=== PATIENT | female | born 1980 | race Hispanic/Latino ===

== ENCOUNTER 2019-05-31 18:33 | Inpatient (IN) ==
--- NOTE | 2019-05-31 18:55 | PROVIDER DOCUMENTATION ---
HPI-General Adult - General Chief Complaint: Abdominal Pain Stated Complaint: COUGH, HEADACHE Time Seen by Provider: 05/31/19 18:43 Source: patient Allergies/Adverse Reactions: Patient Allergies Allergy/AdvReac Type Severity Reaction Status Date / Time No Known Allergies Allergy Verified 05/31/19 18:44 - History of Present Illness -Gen Adult Nature of Presenting Problems: Pt. is 38 yof that presents with c/o RLQ pain and cough for 10 days. Pt. was se en at an and given cough medications and antibiotics. Pt. reports she isn't any better. Location of Pain/Injury: reports: abdomen. denies: none, head, face, mouth, neck, chest, upper extremity, hand(s), back, pelvis, genitalia, lower extremity, feet, upper body, lower body, generalized, other Pain Radiation: reports: RLQ. denies: no radiation, arm(s), back, buttocks, chest, epigastric, feet, groin, jaw, flank (L), legs (lower), LLQ, LUQ, neck, periumbilical, flank (R), RUQ, shoulder(s), scapula, scrotal, sternal notch, suprapubic, legs (upper), urethral, vaginal, other Quality of Pain: reports: aching. denies: burning, pressure, tightness Severity: reports: moderate. denies: mild, severe Onset/Duration: reports: gradual, other (Two weeks) Timing: reports: still present. denies: improving, gone now, getting worse Context/Activities at Onset: reports: none. denies: light activity, moderate activity, vigorous activity, recent emotional stress, recent physical stress, recent trauma history, possible bad food, cold exposure, eating, out of country travel, rest, sleep, sexual activity, other Modifying Factors: improves with: nothing Associated Symptoms: reports: cough, genitourinary problems, nausea. denies: denies symptoms, anxiety, arm pain, back/neck pain, chest pain, constipation, diaphoresis, diarrhea, dizziness, EENT symptoms, fatigue, fever/chills, headaches, heartburn, joint pain, loss of appetite, malaise, muscle aches, sinus congestion/drainage, rash, seizure, shortness of breath, sensory/motor loss, pain with inspiration, swelling/mass in abdomen, syncope, vomiting, weakness, trouble walking, other Similar Symptoms Previously?: Yes Recently seen or treated by another doctor?: Yes Review of Systems - Adult - REVIEW OF SYSTEMS - ADULT Constitutional: reports: no symptoms reported Eyes: reports: no symptoms reported Ears, Nose, Mouth & Throat: reports: no symptoms reported Cardiovascular: reports: no symptoms reported Respiratory: reports: see HPI, cough. denies: pleurisy, wheezing Gastrointestinal: reports: see HPI, abdominal pain, nausea. denies: hematemesis, diarrhea, vomiting Genitourinary: reports: see HPI, dysuria, flank pain. denies: frequency, hematuria, urgency Musculoskeletal: reports: no symptoms reported Integumentary: reports: no symptoms reported Neurological: reports: no symptoms reported Psychiatric: reports: no symptoms reported Past History - Adult - PAST MEDICAL HISTORY-ADULT Review of Records: reports: Old Records Reviewed, Nursing Assessment Review, Medications Reviewed, Social history reviewed & non-contributory. - IMMUNIZATION STATUS Childhood Immunizations: See Nurse Assessment Flu Vaccine: See Nurse Assessment - FAMILY HISTORY Family History: reviewed, not pertinent - SOCIAL HISTORY Smoking: denies Physical Exam-General - PHYSICAL EXAM-ADULT Initial Vital Signs Reviewed: Yes - CONSTITUTIONAL General Appearance: alert, mild distress, obese. negative: anxious, obtunded, combative - EYES Eyes: PERRL/EOMI, pink conjunctivae - HEAD, EARS, NOSE, MOUTH & THROAT HENMT: normocephalic/atraumatic, moist mucous membranes. negative: pharynx normal, frontal tenderness, maxillary tenderness - NECK Neck: non-tender, full range of motion, supple, normal inspection. negative: tender lateral, tender midline - RESPIRATORY Respiratory: lungs clear, normal breath sounds. negative: crackles, rales, rhonchi - CARDIOVASCULAR Cardiovascular: normal peripheral pulses, regular rate, rhythm, no edema - GASTROINTESTINAL (ABDOMEN) Abdominal Exam: normal bowel sounds, non tender, soft, tenderness (RLQ). neg ative: rigid, rebound, hernia, mass - LYMPHATIC Lymphatic: no adenopathy. negative: axilla node tender, cervical node tenderness - MUSCULOSKELETAL Back Exam: normal inspection, no CVA tenderness, no vertebral tenderness Extremity: normal range of motion, non-tender, normal gait, normal inspection Peripheral Pulses: radial (R): 2+, radial (L): 2+ - SKIN Integumentary: normal color, normal turgor, warm/dry - NEUROLOGIC Neurologic: grossly normal, no motor/sensory deficits - PSYCHIATRIC Psych/Mental Status: normal mood/affect, normal thought content, normal thought process, oriented x 3. negative: anxious, paranoid, tearful Progress - PLAN OF CARE/RESULTS Progress/Plan/Lab Results: Vital Signs - 8 hr 05/31/19 18:40 Temperature 99.0 F Pulse Rate 95 H Respiratory Rate 20 Blood Pressure 118/69 O2 Sat by Pulse Oximetry 96 Bedside Urine ED: Urine Bedside Start: 05/31/19 18:46 Freq: ORDERED Status: Active Protocol: Activity Type Activity Date Activity User E-Sign Co-Sign Detail Recorded Client Recorded Date Recorded By Document 05/31/19 18:49 [id number] 05/31/19 18:49 [id number] 05/31/19 18:49 Point of Care [Bedside Point of Care] -Lot # [id number] - Results Negative -Control Line Visible? Yes Orders Category Date Time Status ED: Urine Bedside ORDERED Care 05/31/19 18:[address] W/POSS RFLX CULT [URINALYSIS] Stat Lab 05/31/19 18:49 Ordered Laboratory Tests 05/31/19 18:44 Urine Source CLEAN CATCH Urine Color YELLOW Urine Clarity VERY CLOUDY A Urine pH 7.0 Ur Specific Gardner 1.005 Urine Protein 1+(30 mg/dL) A Urine Ketones NEGATIVE Urine Blood 3+ A Urine Nitrite NEGATIVE Urine Bilirubin NEGATIVE Urine Urobilinogen NORMAL Urine Microscopic RBC 10-20 A Urine WBC 2+ A Urine Microscopic WBC TNTC A Ur Epithelial Cells >10 A Urine Crystals NONE SEEN Urine Bacteria 4+ Urine Casts NONE SEEN Urine Yeast NONE SEEN Urine Glucose NEGATIVE Discussed results and plan of care with patient. Patient agrees with plan and verbalizes understanding. Patient's WBC count [address] concerning for obstructive stone/Pyelonephritis. Urology consulted and will follow. Hospitalist paged for admission ([id number]). Patient will be admitted for IV abx. Patient agrees with plan to admit. Result Diagrams: 05/31/19 21:52 05/31/19 21:52 - CT/MRI 1 CT Study: Renal Stone ([facility] - [address] , [address] [place] [id number] [address] Department of Imaging Patient: NAHUM BLUNTADM Date: 05/31/19#: [id number] : 1980ADM Status: [facility] ERAcct#: [id number] Age/Sex: 38/FRoom/Bed: Loc: P.ED Ordering Physician: Lucho Lozano Family Physician: None,PCP Reason for Procedure: right flank pain Signed EXAM: CT RENAL STONE SEARCH INDICATION: right flank pain TECHNIQUE: This exam was performed using automated exposure control, adjustment of mA or kV according to patient size, and/or use of iterative reconstruction technique. COMPARISON: None. FINDINGS: There is mild to moderate hepatic steatosis. The gallbladder, spleen, pancreas, and adrenal glands are unremarkable. There is a large staghorn calculus in the right renal collecting system extending into the renal pelvis. There is mild to moderate calyceal dilation on the right and there is perinephric stranding indicating obstruction and/or pyelonephritis. The left kidney appears normal. The urinary bladder is unremarkable. The reproductive tract is grossly unremarkable as imaged. The appendix is normal. There is no evidence of bowel wall thickening or bowel obstruction. The remainder of the GI tract is grossly unremarkable. IMPRESSION: Large right renal staghorn calculus with dilated calyces and perinephric stranding indicating obstruction and/or pyelonephritis. Electronically signed by Rudy Mensah 05/31/2019 8:59 PM 05/31/192058 Interpreting Physician: Rudy Mensah MD Dictated Date/Time: 05/31/192052 cc: Lucho Lozano; None,PCP) CT Results: See note - CONSULTS/PCP/HOSPITALIST Notification #1 *Consult/PCP/Hospitalist*: Dr. Whitlock Time Discussed: 21:17 Reason/Comments: Consult Consult Disposition: F/U in office (ABX and treat stone pain.) #2 Consult: Ramila Del Rio Time Discussed: 22:20 Reason/Comments: Staghorn calculus; Pyelonephritis/Obstruction; Leukocytosis Consult Disposition: Admit - CHANGE OF SHIFT REPORT (ED Provider) 1 Report Given and Care Transferred to:: SOPHY Campa Time of Transfer: 21:19 Items Pending: Labs Departure - Departure Date of Disposition Decision: 05/31/19 Time of Disposition Decision: 22:20 DIAGNOSIS: Staghorn calculus, Pyelonephritis, Nausea Leukocytosis, unspecified Qualifiers: Leukocytosis type: unspecified Qualified Code(s): D72.829 - Elevated white bloo d cell count, unspecified Disposition: ADMITTED INPATIENT 09 Certified Medical Emergency: Emergent Condition: Stable Referrals and Follow-Ups: None,PCP [Primary Care Provider] - Douglas Whitlock MD [ACTIVE STAFF PHYSICIAN] - - Critical Care Note This patient required my direct & personal management of CC.: No Attestation - Physician/ KARLA Attestation Patient care was provided by Advanced Practice Provider:: Yes Advanced Practice Provider:: Lucho Lozano Advanced Practice Provider documentation review:: The Mid-level provider documentation, treatment plan and medical decision making was reviewed by the physician who agrees with all treatment and medical decision making by the MLP. The physician spent face to face time with patient:: No Advanced Practice Provider documentation review:: Supervising physician onsite and consulted in the evaluation and care of this patient. The physician did not have a face to face encounter with the patient.
[2019-05-31 19:13] LABS: BILIRUBIN URINE NEGATIVE (NEGATIVE); BLOOD URINE 3+ (NEGATIVE); CLARITY VERY CLOUDY (CLEAR); COLOR YELLOW; GLUCOSE URINE NEGATIVE (NEGATIVE); KETONE URINE NEGATIVE (NEGATIVE); LEUKOCYTES URINE 2+ (NEGATIVE); NITRITE URINE NEGATIVE (NEGATIVE); PROTEIN URINE 1+(30 mg/dL) mg/dL (NEGATIVE); SP GRAVITY URINE 1.005; UROBILINOGEN URINE NORMAL
[2019-05-31 19:16] LABS: URINE SOURCE CLEAN CATCH
[2019-05-31 19:17] LABS: URINE BACTERIA 4+ /HFP; URINE CAST NONE SEEN /LPF; URINE CRYSTAL NONE SEEN /HPF; URINE EPITHELIAL CELLS >10 /HPF (<10); URINE WBC TNTC /HPF (<10); URINE YEAST NONE SEEN /HPF
--- NOTE | 2019-05-31 21:01 | Diag Imaging Result Doc PS360 ---
EXAM: CT RENAL STONE SEARCH INDICATION: right flank pain TECHNIQUE: This exam was performed using automated exposure control, adjustment of mA or kV according to patient size, and/or use of iterative reconstruction technique. COMPARISON: None. FINDINGS: There is mild to moderate hepatic steatosis. The gallbladder, spleen, pancreas, and adrenal glands are unremarkable. There is a large staghorn calculus in the right renal collecting system extending into the renal pelvis. There is mild to moderate calyceal dilation on the right and there is perinephric stranding indicating obstruction and/or pyelonephritis. The left kidney appears normal. The urinary bladder is unremarkable. The reproductive tract is grossly unremarkable as imaged. The appendix is normal. There is no evidence of bowel wall thickening or bowel obstruction. The remainder of the GI tract is grossly unremarkable. IMPRESSION: Large right renal staghorn calculus with dilated calyces and perinephric stranding indicating obstruction and/or pyelonephritis. Electronically signed by Rudy Mensah 05/31/2019 8:59 PM
[2019-05-31] MEDS ORDERED: ROCEPHIN 1 GM in NS 50 ML IV ONE (21:18)
[2019-05-31] MEDS ORDERED: NS 1,000 ML IV ONE (21:18)
[2019-05-31] MEDS ORDERED: TORADOL IV ONE (21:18)
[2019-05-31] MEDS ORDERED: ZOFRAN IV ONE (21:18)
[2019-05-31 22:12] LABS: BASO# 0.04 X1000 (0.0-0.2); BASO% 0.3 % (0.0-0.8); EOS# 0.42 X1000 (0.0-0.7); EOS% 2.9 % (0.0-10.0); HEMATOCRIT 36.6 % (37.0-47.0); HEMOGLOBIN 11.5 g/dL (12.0-16.0); IMM GRAN# 0.04 X1000 (0.0-0.04); IMM GRAN% 0.3 % (0.0-0.5); LYMPH# 3.51 X1000 (1.2-3.4); LYMPH% 24.5 % (20.5-51.1); MCH 22.6 PG (27-31); MCHC 31.4 g/dL (33-37); MONO# 1.35 X1000 (0.11-0.59); MONO% 9.4 % (1.7-9.3); MPV 10.5 FL (7.4-10.4); NEUT# 8.95 X1000 (1.4-6.5); NEUT% 62.6 % (42.2-75.2); PLT 363 X1000 (130-400); RBC 5.08 XMIL (4.2-5.4); RDW 18.4 % (11.5-14.5); WBC 14.31 X1000 (4.8-10.8)
[2019-05-31 22:25] LABS: AGAP 12; ALBUMIN 4.2 g/dL (3.5-5.0); ALKALINE PHOSPHATASE 99 U/L (32-104); BUN 8 mg/dL (8-22); CHLORIDE 100 mmol/L (98-107); COSMO 273; CREATININE 0.5 mg/dL (0.5-0.9); ESTIMATED GFR > 60; GLUCOSE 81 mg/dL (70-104); GOT 18 U/L (10-30); GPT 17 U/L (10-36); POTASSIUM 3.6 mmol/L (3.5-5.1); SODIUM 138 mmol/L (136-145); TCO2 26 mmol/L (25-35); TOTAL PROTEIN 7.6 g/dL (6.3-8.3)
[2019-06-01] MEDS ORDERED: ZOFRAN IV PRN (02:28)
[2019-06-01] MEDS ORDERED: TORADOL IV PRN (02:28)
[2019-06-01] MEDS ORDERED: NS 1,000 ML IV ONE (02:28)
[2019-06-01] MEDS ORDERED: MORPHINE IV PRN ×2 (04:04→16:44)
[2019-06-01] MEDS ORDERED: ROCEPHIN 1 GM in NS 50 ML IV SCH ×2 (04:15→22:00)
--- NOTE | 2019-06-01 06:14 | HISTORY AND PHYSICAL ---
PRIMARY CARE PHYSICIAN: Unknown. CHIEF COMPLAINT: Right flank pain and not feeling well. HISTORY OF PRESENTING ILLNESS: A 38-year-old female without significant past medical history had presented initially to [facility] with right flank pain. She was stating that she was nauseated and was having fevers. The patient was evaluated there. She had imaging done which did show a large right renal staghorn calculus, and also shows possible pyelonephritis. She was treated with IV antibiotics. Her case was discussed with urologist who recommended the patient be transferred to [facility] for further evaluation and management. At the time of my examination, patient denied any headache, chest pain, shortness of breath, hemoptysis, melena or weight changes but complained of right flank pain. PAST MEDICAL HISTORY: None. PAST SURGICAL HISTORY: None. ALLERGIES: No known drug allergies. CURRENT MEDICATIONS: None. SOCIAL HISTORY: No history of smoking, alcohol or illicit drug use. FAMILY HISTORY: No history of coronary disease. REVIEW OF SYSTEMS: Fourteen point review of systems as in HPI. Other systems negative. PHYSICAL EXAMINATION: GENERAL: Cooperative friendly female. She is resting more comfortably now. VITAL SIGNS: Temperature 97.6 degrees, pulse 77, respirations 22, and blood pressure 110/60. HEENT: Atraumatic, normocephalic. Extraocular movements intact. PERRLA. NECK: Supple. CHEST: Clear to auscultation. CARDIOVASCULAR: Regular rate and rhythm. ABDOMEN: Soft. Positive bowel sounds. BACK: There is right flank tenderness. NEUROLOGIC: She is awake, alert, and oriented x3. : No bladder distention. SKIN: Warm. LABORATORIES AND STUDIES: WBCs 14.31, hemoglobin 11.5, hematocrit 36.6, and platelets 363,000. Sodium 138, potassium 3.6, chloride 100, CO2 is 26, BUN is 8, creatinine is 0.5, and glucose is 81. Renal CT shows a large right renal staghorn calculus and perinephric stranding indicating possible pyelonephritis. ASSESSMENT: This is a 38-year-old female without any significant past medical history who presented to emergency department with several days history of having right flank pain. She was evaluated initially at [facility]. Due to lack of subspecialist care, she was transferred to [facility] for further evaluation and management. 1. Large right renal staghorn calculus. 2. Acute pyelonephritis. PLAN: 1. We will admit patient to medical floor with telemetry. 2. We will continue with supportive care with IV fluids, antiemetics, and pain control. 3. We will start patient on empiric antibiotics. 4. We will consult Urology. 5. We will put patient on DVT prophylaxis with SCD's. 6. We will continue to follow and reassess and make further recommendations based on the patient's clinical course. cc: Kadeem Ramos MD
[2019-06-01 06:37] LABS: AGAP 12; BUN 11 mg/dL (8-22); CALCIUM 8.7 mg/dL (8.8-10.2); CHLORIDE 107 mmol/L (98-107); COSMO 285; CREATININE 0.6 mg/dL (0.5-0.9); ESTIMATED GFR > 60; GLUCOSE 111 mg/dL (70-104); POTASSIUM 3.7 mmol/L (3.5-5.1); SODIUM 143 mmol/L (136-145); TCO2 24 mmol/L (25-35)
[2019-06-01 06:42] LABS: BASO# 0.04 X1000 (0.0-0.2); BASO% 0.4 % (0.0-0.8); HEMATOCRIT 32.2 % (37.0-47.0); HEMOGLOBIN 10.1 g/dL (12.0-16.0); LYMPH# 2.91 X1000 (1.2-3.4); LYMPH% 29.3 % (20.5-51.1); MCH 23.2 PG (27-31); MCHC 31.4 g/dL (33-37); MCV 73.9 FL (81-99); MONO# 1.19 X1000 (0.11-0.59); MPV 10.8 FL (7.4-10.4); NEUT# 5.28 X1000 (1.4-6.5); NEUT% 53.3 % (42.2-75.2); PLT 307 X1000 (130-400); RBC 4.36 XMIL (4.2-5.4); RDW 18.3 % (11.5-14.5); WBC 9.92 X1000 (4.8-10.8)
--- NOTE | 2019-06-01 11:20 | CONSULTATION ---
DATE OF CONSULTATION: 06/01/2019 CHIEF COMPLAINT: Right flank pain. HISTORY OF PRESENT ILLNESS: Ms. White is a 38-year-old female with no pertinent past medical history who presented to [facility] last night complaining of right flank pain. She said that she had been having pain off and on for several weeks now. She states that she may have had a low-grade temperature at home. She denies any nausea or vomiting, hematuria, or dysuria. The patient had a CT of the abdomen and pelvis performed which showed a large right staghorn renal calculus. The patient's urinalysis showed some blood as well as bacteria present. The patient was sent and admitted to [facility] for treatment of possible kidney infection and pyelonephritis. The patient today denies any pain and remains afebrile with stable vital signs. She denies a personal or family history of stones. She denies ever seeing a urologist previously. PAST MEDICAL HISTORY: None. PAST SURGICAL HISTORY: None. ALLERGIES: No known drug allergies. MEDICATIONS: No home medications. FAMILY HISTORY: She denies a family history of malignancy or nephrolithiasis. SOCIAL HISTORY: She denies tobacco, alcohol, or illicit drug use. REVIEW OF SYSTEMS: A 12 point review of systems was performed with all pertinent positives in the HPI. PHYSICAL EXAMINATION: Vital Signs: Temperature 98.5, heart rate 70, blood pressure 115/68, and oxygen saturation 98% on room. General: No acute distress. Resting comfortably in bed. Alert and oriented times 3. HEENT: Normocephalic, atraumatic. Pupils are equal, round, and reactive to light. Mucous membranes are moist. Neck: Trachea is midline with no obvious masses. Chest: Good respiratory effort without wheezing or rales. Cardiovascular: Regular rate and rhythm. No evidence of lower extremity edema. Abdomen: Soft, nontender, and nondistended. No palpable masses or hepatosplenomegaly. : No suprapubic tenderness. No CVA tenderness. No bladder distention. Neurologic: Gross motor and sensory intact. Alert and oriented x 3. Skin: No obvious skin lesions or rashes. Musculoskeletal: Moving all extremities. LABORATORY DATA: White blood cell count is 9.9, hemoglobin 10.1, hematocrit 32.2, and platelets 307. Sodium is 145, potassium 3.5, chloride 107, bicarb 24, creatinine 0.6, BUN 11, glucose 111, and calcium 8.7. Urinalysis showed 3+ blood with greater than 10 epithelial cells and 4+ bacteria. IMAGING: CT of the abdomen and pelvis, noncontrast: Images were reviewed which showed a large staghorn renal calculus prominent in the lower and interpolar of the right kidney. Slight fullness of the upper pole of the kidney. The stone appears to enter into the right proximal ureter at the ureteropelvic junction. No other stones are seen. ASSESSMENT AND PLAN: Ms. White is a 38-year-old female who presented to the Emergency Room overnight with the complaint of right flank pain. The patient had a CT scan which showed a large staghorn right renal calculus. The patient had a slightly elevated white blood cell count on admission of 14 which has returned down to 9 today. Creatinine remains stable. The patient remains afebrile. I discussed with the patient this morning that she has a large stone within her kidney and likely would need a percutaneous nephrostolithotomy for treatment of the stone. I discussed this procedure at length with the patient and we planned to do this in the outpatient setting with follow up urine culture and treatment with culture specific antibiotics in preparation for surgery. From a urologic standpoint no immediate intervention is necessary. We will continue to monitor. Please call with questions or concerns. cc: Douglas Whitlock MD MTDD
[2019-06-01] MEDS: NS 1,000 ML IV SCH (14:51)
[2019-06-01] MEDS ORDERED: NORCO-7.5 PO PRN (16:43)
--- NOTE | 2019-06-01 17:14 | PROGRESS NOTE ---
DATE: 06/01/2019 SUBJECTIVE: Patient is complaining a bit of abdominal pain, especially after she ate. She seems to be doing okay though. Will continue to follow. OBJECTIVE: Blood pressure is 123/63, heart rate 82, respiratory 16, temperature 98.5 degrees, 95% on room air.Cardiovascular: Regular rate and rhythm. Pulmonary: Bilateral breath sounds clear to auscultation. GI: Soft, nontender, nondistended. Bowel sounds are positive. LABORATORY DATA: WBC is 9.9, hemoglobin and hematocrit 10, 32, MCV 73, platelets of 307,000. Creatinine intact. UA does look like she has gross pyuria. PROBLEM LIST: 1. Staghorn with pyelonephritis. We will continue empiric antibiotics. White count has already improved. Cultures are thus far no growth. 2. We will continue fluids and continue to monitor very closely. Wait for culture results. Urology has been consulted but they are not planning to do anything inpatient. We will continue nephrolithotomy as an outpatient. Continue to follow closely. cc: Surinder Trinh MD MTDD
[2019-06-02] MEDS: NS 1,000 ML IV SCH ×2 (01:47→10:05)
[2019-06-02 05:53] LABS: BASO# 0.03 X1000 (0.0-0.2); BASO% 0.3 % (0.0-0.8); EOS% 7.7 % (0.0-10.0); HEMATOCRIT 31.8 % (37.0-47.0); HEMOGLOBIN 10.1 g/dL (12.0-16.0); LYMPH# 2.95 X1000 (1.2-3.4); LYMPH% 32.3 % (20.5-51.1); MCH 23.1 PG (27-31); MCHC 31.8 g/dL (33-37); MCV 72.6 FL (81-99); MONO% 8.8 % (1.7-9.3); MPV 10.8 FL (7.4-10.4); NEUT# 4.65 X1000 (1.4-6.5); NEUT% 50.9 % (42.2-75.2); PLT 327 X1000 (130-400); RBC 4.38 XMIL (4.2-5.4); RDW 18.4 % (11.5-14.5); WBC 9.13 X1000 (4.8-10.8)
[2019-06-02] MEDS ORDERED: HALL'S COUGH LOZENGE MT PRN (09:53)
[2019-06-02 11:44] VITALS: BP 100/52
--- NOTE | 2019-06-02 16:15 | DISCHARGE SUMMARY ---
ADMISSION DATE: 06/01/2019 DISCHARGE DATE: 06/02/2019 DISCHARGE DIAGNOSIS: Pyelonephritis of the left kidney. Large right renal staghorn calculus with dilated calices. Culture negative. This is a 38-year-old female. She was admitted 06/01 (discharge date will be 06/02) for abdominal pain. She had a large right renal staghorn with acute pyelonephritis. Urology was consulted and recommended an outpatient nephrostolithotomy, this would be done after her urine culture was obtained, and there was no immediate urological surgical need at this time. Her culture did not grow out anything, but she defervesced on Rocephin, and she was felt stable for discharge. Her diet was advanced. Her white count came down to 9. I think she had no fevers, but she did not have them during her course. She was discharged on Levaquin 500 daily for 14 days and given a prescription for Ultram p.r.n. She will need followup with Dr. Whitlock within 1 to 2 weeks, PCP within 1 to 2 weeks. Return for worsening abdominal pain, nausea, fever. cc: Surinder Trinh MD
== END 2019-06-02 13:44 | disposition home or self-care (01) | DRG 694 ==
LOC: P.ED 18:33 → 4N 06-01 01:54 → SUATTDRO 06-01 01:54 → 4N 06-01 02:28
PROVIDERS: ATTEND Internal Medicine

== ENCOUNTER 2019-06-17 10:10 | Day surgery (SDC) ==
[2019-06-11 10:49] LABS: HEMATOCRIT 36.1 % (37.0-47.0); HEMOGLOBIN 11.7 g/dL (12.0-16.0); MCH 23.3 PG (27-31); MCHC 32.4 g/dL (33-37); MCV 71.9 FL (81-99); MPV 9.9 FL (7.4-10.4); RBC 5.02 XMIL (4.2-5.4); RDW 18.5 % (11.5-14.5); WBC 8.4 X1000 (4.8-10.8)
[2019-06-11 11:32] LABS: AGAP 10; BUN 13 mg/dL (8-22); CALCIUM 9.4 mg/dL (8.8-10.2); CHLORIDE 104 mmol/L (98-107); COSMO 280; CREATININE 0.5 mg/dL (0.5-0.9); ESTIMATED GFR > 60; GLUCOSE 114 mg/dL (70-104); SODIUM 140 mmol/L (136-145); TCO2 26 mmol/L (25-35)
[2019-06-17] MEDS ORDERED: LR 1,000 ML ONE ×2 (10:52→18:08)
[2019-06-17] MEDS ORDERED: KEFZOL 1 GM/D5W 2 GM/100 ML IVPB ONE (10:53)
[2019-06-17] MEDS ORDERED: PEPCID ONE (10:53)
[2019-06-17] MEDS ORDERED: REGLAN ONE (10:53)
[2019-06-17] MEDS ORDERED: DIPRIVAN 1% ONE (12:22)
[2019-06-17] MEDS ORDERED: QUELICIN (DOSE) ONE (12:23)
[2019-06-17] MEDS ORDERED: XYLOCAINE-MPF 2% ONE (12:23)
[2019-06-17] MEDS ORDERED: DUONEB (A & A) INH ONE (12:58)
[2019-06-17] MEDS ORDERED: SUFENTA ONE (13:19)
[2019-06-17] MEDS ORDERED: VENTOLIN HFA ONE (17:02)
[2019-06-17] MEDS ORDERED: ROBINUL ONE (17:02)
[2019-06-17] MEDS ORDERED: DECADRON ONE (17:19)
[2019-06-17] MEDS ORDERED: ZOFRAN ONE (17:19)
[2019-06-17] MEDS: DILAUDID ONE ×2 (18:07→18:17)
[2019-06-17] MEDS ORDERED: TORADOL ONE (18:07)
[2019-06-17] MEDS ORDERED: ZOFRAN IV PRN (18:15)
[2019-06-17] MEDS ORDERED: TYLENOL PO PRN (18:15)
[2019-06-17] MEDS ORDERED: NORCO-7.5 PO PRN (18:15)
[2019-06-17] MEDS ORDERED: LABETALOL IV PRN (18:15)
--- NOTE | 2019-06-17 18:42 | Diag Imaging Result Doc PS360 ---
EXAM: CHEST-PORTABLE - 06/17/2019 HISTORY: post op nephrolithotomy TECHNIQUE: Portable chest COMPARISON: None. FINDINGS: The projection is somewhat lordotic which limits detail at the lung bases. Lungs appear grossly clear. There is no pleural effusion or pneumothorax identified. Heart size appears normal. IMPRESSION: No evidence of acute disease. Electronically signed by Frederick Owen 06/17/2019 6:40 PM
[2019-06-17] MEDS ORDERED: LR 1,000 ML IV SCH (19:00)
[2019-06-17] MEDS ORDERED: NORCO-7.5 ONE (19:25)
[2019-06-17 20:52] LABS: HEMATOCRIT 33.4 % (37.0-47.0); HEMOGLOBIN 10.6 g/dL (12.0-16.0); MCH 23.2 PG (27-31); MCHC 31.7 g/dL (33-37); MCV 73.2 FL (81-99); MPV 10.1 FL (7.4-10.4); RBC 4.56 XMIL (4.2-5.4); RDW 18.4 % (11.5-14.5); WBC 18.99 X1000 (4.8-10.8)
[2019-06-17 21:12] LABS: AGAP 14; BUN 10 mg/dL (8-22); CALCIUM 7.9 mg/dL (8.8-10.2); CHLORIDE 105 mmol/L (98-107); COSMO 281; CREATININE 0.5 mg/dL (0.5-0.9); ESTIMATED GFR > 60; GLUCOSE 141 mg/dL (70-104); POTASSIUM 3.8 mmol/L (3.5-5.1); SODIUM 140 mmol/L (136-145); TCO2 21 mmol/L (25-35)
[2019-06-17] MEDS: COLACE PO SCH (21:24)
[2019-06-17] MEDS: MORPHINE IV PRN (21:47)
[2019-06-17] MEDS: KEFZOL 2 GM/D5W 2 GM/50 ML IVPB IV SCH (22:13)
[2019-06-17] MEDS: PERIDEX MT SCH (23:46)
[2019-06-18] MEDS: TORADOL IV SCH ×2 (02:16→02:54)
[2019-06-18] MEDS: MORPHINE IV PRN (04:27)
[2019-06-18] MEDS: KEFZOL 2 GM/D5W 2 GM/50 ML IVPB IV SCH (05:01)
[2019-06-18 06:39] LABS: AGAP 11; BUN 11 mg/dL (8-22); CALCIUM 7.7 mg/dL (8.8-10.2); CHLORIDE 104 mmol/L (98-107); COSMO 279; CREATININE 0.6 mg/dL (0.5-0.9); ESTIMATED GFR > 60; GLUCOSE 133 mg/dL (70-104); POTASSIUM 3.7 mmol/L (3.5-5.1); SODIUM 139 mmol/L (136-145); TCO2 24 mmol/L (25-35)
[2019-06-18 06:57] LABS: BASO# 0.01 X1000 (0.0-0.2); BASO% 0.1 % (0.0-0.8); HEMATOCRIT 30.7 % (37.0-47.0); HEMOGLOBIN 9.7 g/dL (12.0-16.0); LYMPH# 0.99 X1000 (1.2-3.4); LYMPH% 5.8 % (20.5-51.1); MCH 23.3 PG (27-31); MCHC 31.6 g/dL (33-37); MCV 73.6 FL (81-99); MONO# 0.83 X1000 (0.11-0.59); MONO% 4.9 % (1.7-9.3); MPV 10.6 FL (7.4-10.4); NEUT% 89.2 % (42.2-75.2); PLT 363 X1000 (130-400); RBC 4.17 XMIL (4.2-5.4); RDW 18.1 % (11.5-14.5); WBC 17.03 X1000 (4.8-10.8)
[2019-06-18] MEDS ORDERED: LOVENOX SUBQ ONE (07:14)
--- NOTE | 2019-06-18 08:21 | Diag Imaging Result Doc PS360 ---
EXAM: CT ABDOMEN/PELVIS W/O CONTRAST 06/18/2019 HISTORY: Postop from Percutaneous stone surgery TECHNIQUE: This exam was performed using automated exposure control, adjustment of mA or kV according to patient size, and/or use of iterative reconstruction technique. COMMENT: The current study is compared with the previous examination of 05/31/2019. There are coarse opacities in the inferior lingula and left lower lobe and dense consolidation of the posterior right lower lobe. These findings were not present on the previous study. The liver is increased in size measuring 24 cm transversely compared to 22 cm on the previous study. The liver is also somewhat more hypodense. The spleen is not enlarged. The adrenal glands are not enlarged. There are some questionable small gallstones in the gallbladder. There is no evidence of nephrolithiasis or stones in the left kidney. There is a nephrostomy catheter in the right renal collecting system inferiorly. There is some gas in the calyces in the mid and lower pole. There are at least two remaining stone fragments measuring up to 9 mm in size. There is some perinephric stranding on the right. This is worse than on the previous study and there is some paracolic fluid in the gutter extending into the pelvis. There is a small amount of fluid in the cul-de-sac. There is a Serrano catheter in the bladder. There is scoliosis of the lumbar spine with convexity to the left. There is no evidence of acute bony disease. IMPRESSION: Bibasilar bronchopneumonia. Remaining stone fragments in the right collecting system. Right percutaneous nephrostomy catheter. Minimal free fluid. Electronically signed by Eduardo Encarnacion 06/18/2019 8:19 AM
[2019-06-18] MEDS: COLACE PO SCH (08:32)
[2019-06-18] MEDS: PERIDEX MT SCH (08:32)
[2019-06-18] MEDS: ROBAXIN PO SCH ×2 (08:33→13:28)
[2019-06-18] MEDS ORDERED: PERIDEX MT SCH (09:00)
--- NOTE | 2019-06-18 09:44 | PROGRESS NOTE ---
DATE: 06/18/2019 SUBJECTIVE: Postoperative day 1 from right percutaneous nephrostolithotomy for stones greater than 2.5 cm. The patient had a large stone that was removed yesterday. The patient is doing relatively well. She is having some pain in her back as well as what she describes as bladder spasms. She denies any fevers or chills. She tolerated clear liquids last night. The patient states she is hungry and would like more today. She has been minimally ambulatory. She is having some drainage from her back. OBJECTIVE: Vital signs: Temperature 98.3 degrees, heart rate 99, blood pressure 95/50, oxygen saturation 97% on room air. General: No acute distress. Resting comfortably in bed. Alert and oriented. Respiratory: Good respiratory effort without audible wheezing or rales. Cardiovascular: Slight tachycardia. No evidence of lower extremity edema. Abdomen: Soft, nontender, nondistended. No palpable masses. : Slight suprapubic tenderness. Urethral catheter in place draining clear yellow urine, slightly pink tinged. Nephrostomy tube site is well healed. Tube is having a small amount of drainage around the tube which seems to be improving. Nephrostomy tube itself is draining light pink urine with no evidence of any clots. Musculoskeletal: Moving all extremities. LABS: White blood cell count 17.0, hemoglobin 9.7, hematocrit 30.7, platelets 363,000. Sodium 139, potassium 3.7, chloride 104, bicarb 24, BUN 11, creatinine 0.6, glucose 133. Chest x-ray performed yesterday showed no evidence of pleural effusion. ASSESSMENT AND PLAN: Ms. White is a 38-year-old who presents postoperatively after right percutaneous nephrostolithotomy for stones greater than 2.5 cm. The patient did well after surgery and is recovering appropriately. Drain site appears to be normal with slight drainage around it, no obvious purulence or any other fluid draining from the site. Nephrostomy tube itself is draining clear pink urine with no evidence of any clots. Urethral catheter in place. Will plan to discontinue her Serrano catheter today. Will continue with pain medication to optimize her pain control. She remains afebrile. Vital signs are stable except for low- grade tachycardia. Will obtain a CT scan today to assess for residual stone. If no residual stones are present, will plan to remove her nephrostomy tube in the office next week. If stones persist, we may consider repeat 2nd-look percutaneous nephrostolithotomy to remove all the rest of her stones. No obvious stones were seen yesterday in the operating room. Will plan to give a dose of Lovenox today. She will be ambulatory. Will continue with antibiotics. If does well, could consider discharge later today. cc: Douglas Whitlock MD MTDD
[2019-06-18 10:59] VITALS: BP 102/63
--- NOTE | 2019-06-18 22:49 | OPERATIVE NOTE ---
PROCEDURE DATE: 06/17/2019 PREOPERATIVE DIAGNOSIS: Right staghorn renal stone. POSTOPERATIVE DIAGNOSIS: Right staghorn renal stone. PROCEDURES PERFORMED: 1. Cystoscopy with right externalized ureteral stent. 2. Right percutaneous access. 3. Renal dilation. 4. Right percutaneous nephrostolithotomy for stones greater than 2.5 cm. 5. Right nephrostogram. 6. Right nephrostomy tube placement. SURGEON: Douglas Whitlock MD. KINDERGARTEN PARAPROFESSIONAL: None. COMPLICATIONS: None. BLOOD LOSS: 150 mL. DRAINS: 1. A 16-Cymraes Serrano catheter. 2. A 12-Cymraes nephrostomy tube on the right. ANESTHESIA: Endotracheal intubation. INDICATIONS FOR PROCEDURE: Ms. Martinez is a 38-year-old female who presented to the emergency room complaining of right flank pain. CT abdomen pelvis was performed, which showed a large staghorn renal calculus measuring greater than 4 cm. The patient was having pain which resolved with oral pain medication and was seen in consult, and it was recommended that patient would need to undergo operative intervention and percutaneous nephrostolithotomy. This was scheduled. Risks, benefits, alternatives of procedure were discussed the patient including damage to surrounding structures, bleeding, infection, need for secondary procedure, damage to the ureter, damage to surrounding structures and liver: No major vasculature. After risks, benefits, alternatives of procedure were discussed the patient elected to proceed. DESCRIPTION OF PROCEDURE: After informed consent obtained, the patient was brought to the operating room and placed on the table in the supine position. The patient received preoperative antibiotics and underwent endotracheal intubation. She was positioned on her bedside stretcher was prepped and draped in usual sterile fashion. A preoperative time-out was performed. All parties in agreement, including anesthesia, surgical and nursing staff, at which point I inserted a 21-Cymraes cystourethroscope through the urethra into the bladder. The entirety of the bladder was inspected with no diverticula, cellules or trabeculations. No papillary lesions were ween. No bladder stones. Both ureteral orifices were visualized with efflux of clear yellow urine. Following this, an open-ended catheter was then passed through the camera, and then the right ureteral orifice was engaged, and the open-ended catheter was advanced approximately 24 cm. This was left in place, and then a 16-Cymraes Serrano catheter was inserted under sterile technique, inflated with 10 mL sterile water and placed to gravity drainage. Both of these were attached to one another using a silk tie for stability. At this point, the patient was then repositioned and moved to the operative table, where she was placed into a prone position with arms in [*]position. All pressure points were padded appropriately, and she was secured to the bed with adherent Velcro straps and silk tape. All pressure points were evaluated as well as the nipples, which were external from the actual rolls, and the patient appeared to be well supported. The patient was then re-prepped and draped in the usual fashion, at which point fluoroscopy was brought in, and overlying the right kidney, a large stone was seen. A retrograde pyelogram was performed which outlined the collecting system, and a posterior calyx was determined and entered into. This allowed for passage of a ZIPwire down the ureter, at which point serial dilation starting at 8 Cymraes and increasing up to 10 Cymraes was performed, and then an internal obturator was advanced over the ZIPwire, and a PTFE wire was then advanced down into the bladder and was seen to fluoroscopically curl within the bladder itself. At that point, using a ZIPwire, a NephroMax balloon was used to inflate up to a pressure of 12 atmospheres, and a 30-Cymraes sheath was advanced into the renal collecting system under fluoroscopic guidance, at which point the balloon was deflated and a rigid nephroscope was advanced. At that point it was difficult to see the renal collecting system, and it was felt that our access was not adequate to treat the stone itself. I could not see the stone even though the sheath appeared to be directly adherent to where the stone was. A decision was made to abort the access, because it seemed to maybe have torn through the calyx itself. Another position was then seen. I left the wires in place; however, we chose another location to access the collecting system in a slightly more lower pole. The kidney likely was medialized to the fluid while we were trying to get access into the kidney itself; however, this access point in the lower pole allowed for good mobility of both the upper portion as well as the portion of stone that traversed down the ureter. This was triangulated, and using bull's-eye technique I was able to pass the access needle onto the stone. I could feel the actual stone in the needle itself. I was able to advance a ZIPwire through and up into the upper pole of the kidney. Again, using serial dilators starting at 8 and then proceeding up to 12 Cymraes, I was able to advance an internal sheath, and then advanced a Sensor wire into the collecting system itself. Both of these coiled in the upper pole. These were left in place, and the NephroMax balloon was then re-obtained, and good dilation was seen, and I was able to advance right onto the stone. The rigid nephroscope was advanced, and a stone was seen. Using a lithoclast machine, the stone was then systematically broken up. It was quite a small stone; however, due to its location going both inter-pole and down the ureter, it was difficult to access both sites. Once the largest of the fragments were broken up, these were extracted using the 3- pronged grasper and the [place] grasper. Once these were all removed, the flexible scope was then advanced through the sheath, and using a 365-micron fiber, I was able to fragment the residual stone, and each of these fragments was obtained using the Encircle basket. Once all of the stones were removed from upper pole and down the ureter, a wire was then advanced down the ureter and seen to coil within the bladder itself. Once all these were removed, no residual large fragments were seen. Omnipaque was then injected into the collecting system, and each of the calices were then re-evaluated with no fragments visualized, at which point the sheath was removed and no active bleeding was seen. Leaving the wires in place, I attempted to place a Berenstein catheter down the ureter into the bladder; however, there was some resistance in the midportion of the ureter. The decision was made to abort placement of a Berenstein catheter and just place a nephrostomy tube. A 12 Cymraes nephrostomy tube was obtained and passed into the collecting system itself, and good curl was seen. This was positioned within the renal pelvis. A nephrostogram was shot which outlined a normal collecting system with no filling defects seen. Good drainage seen down the ureter into the bladder. The nephrostomy tube was left in place and was sutured to the skin using 0 silk. Her access site was then closed using a 2-0 Vicryl. At this point a dressing was applied overlying the drain site and adhered with tape. The patient's nephrostomy tube was placed to drainage with clear pink drainage. The catheter was left in place, and the open-ended catheter was completely removed. The patient was then repositioned to a supine position and was extubated and taken to recovery in stable condition. The patient will be monitored overnight in the hospital and hopefully discharged tomorrow. Will likely obtain imaging in the morning to assess for residual stone fragments. If no fragments are seen, we will likely remove the nephrostomy tube in the office next week. If she continues to have fragments, we would plan for a second-look percutaneous nephrostolithotomy next week. This was discussed with the patient. cc: Douglas Whitlock MD
== END 2019-06-18 14:19 | disposition home or self-care (01) ==
LOC: 4N 10:10 → OR 10:10
PROVIDERS: ATTEND Urology